=== PATIENT | male | born 1950 | race Caucasian/White ===

== ENCOUNTER → 2018-04-18 | Outpatient (CLI) | payer OTHER ==
[~2018-04-18] MED LIST: AMLO5CAP2 PO; CYAN100020 PO; FLM4 PO; GLC/500 PO; IBUP-1449 PO; MULT-188 PO; PRAV20TA PO
--- NOTE | 2018-04-18 09:04 | DIAGNOSTIC IMAGING REPORT ---
CHEST 2 VIEWS ROUTINE CLINICAL HISTORY: PAT preoperative evaluation COMPARISON STUDY: No previous studies for comparison. FINDINGS: The bones soft tissues and hemidiaphragms are normal. The cardiomediastinal silhouette is normal. The lungs are clear. The pulmonary vasculature is normal. IMPRESSION: Negative chest. The above report was generated using voice recognition software. It may contain grammatical, syntax or spelling errors. Electronically signed by: Jerald Dougherty M.D. 04/18/2018 8:54 AM Dictated Date/Time: 04/18/2018 8:54 AM
== END | disposition home or self-care (01) ==
LOC: C.CPL 08:05
PROVIDERS: ATTEND Urology
DX: N13.5 Crossing vessel and stricture of ureter without hydronephrosis (principal); N21.0 Calculus in bladder; Z01.811 Encounter for preprocedural respiratory examination; Z01.810 Encounter for preprocedural cardiovascular examination; Z01.812 Encounter for preprocedural laboratory examination

== ENCOUNTER 2018-05-02 05:21 | Day surgery (SDC) | payer OTHER ==
[2018-04-16 15:20] VITALS: BMI 32.0
--- NOTE | 2018-04-18 08:27 | PAT Medication Instructions ---
Service Date Apr 18, 2018. Current Home Medication List Amlodipine/Benazepril (Lotrel 5MG/20MG), 1 CAP PO QAM Cyanocobalamin (Vitamin B12), 1 TAB PO QAM Ibuprofen Tab (Motrin), 1 TAB PO TID PRN for Pain Metformin Hcl (Glucophage), 500 MG PO QPM Multiple Vitamins W/ Minerals (Ocuvite), 2 TAB PO QAM Pravastatin (Pravachol ), 20 MG PO QPM Tamsulosin HCl (Tamsulosin HCl), 1 CAP PO HS Medication Instructions For Your Scheduled Surgery - Hold the following medications 10 days prior to surgery per surgeon's instructions: Ibuprofen Tab (Motrin), 1 TAB PO TID PRN for Pain - Hold the following medications the morning of surgery: Amlodipine/Benazepril (Lotrel 5MG/20MG), 1 CAP PO QAM Cyanocobalamin (Vitamin B12), 1 TAB PO QAM Multiple Vitamins W/ Minerals (Ocuvite), 2 TAB PO QAM - Take the following medications as scheduled the night before surgery--THEN NOTHING TO EAT OR DRINK AFTER MIDNIGHT: Metformin Hcl (Glucophage), 500 MG PO QPM Pravastatin (Pravachol ), 20 MG PO QPM Tamsulosin HCl (Tamsulosin HCl), 1 CAP PO HS If you have any questions please call us at [phone] or [phone] or [phone]
[2018-04-18 08:32] VITALS: BMI 32.0
[~2018-05-02] VITALS: Ht 175.3 cm; Wt 100.2 kg
[2018-05-02 05:50] VITALS: BP 164/93; PULSE 79; TEMP 36.4; O2SAT 98; Ht 175.3 cm; Wt 100.2 kg
[2018-05-02] MEDS ORDERED: LACTATED RINGER'S 1000ML 1,000 ML IV SCH (06:00)
[2018-05-02] MEDS ORDERED: CIPROFLOXACIN / D5W 400 MG IV SCH (06:00)
--- NOTE | 2018-05-02 06:56 | History & Physical Bridge Note ---
H&P Re-Evaluation Bridge Note: I have examined the patient, reviewed the History & Physical and in the interval since the performance of the History & Physical I have noted the following changes of clinical significance: No changes noted
[2018-05-02] MEDS ORDERED: LIDOCAINE HCL 2% 2 ML VIAL (20MG/ML) ONE (07:08)
[2018-05-02] MEDS ORDERED: DEXAMETHASONE SOD INJ 4 MG/ML VIAL ONE (07:08)
[2018-05-02] MEDS ORDERED: PROPOFOL IV EMULSION 10 MG/ML 20 ML VIAL ONE (07:08)
[2018-05-02] MEDS ORDERED: ONDANSETRON INJ 2 MG/ML 2 ML VIAL ONE (07:08)
[2018-05-02] MEDS ORDERED: MIDAZOLAM HCL 1 MG/ML 2ML VIAL ONE (07:08)
[2018-05-02] MEDS ORDERED: FENTANYL CITRATE INJ 50 MCG/1 ML 2 ML VIAL ONE (07:09)
[2018-05-02] MEDS ORDERED: PHEN-775 PO (07:13)
[2018-05-02] MEDS ORDERED: CIPR-255 PO (07:13)
[2018-05-02] MEDS ORDERED: HYDR-3419 PO (07:13)
--- NOTE | 2018-05-02 07:14 | Discharge Instructions ---
Discharge Instructions Date of Service May 02, 2018. Admission Reason for Admission: Bladder Stone, Stricture Discharge Discharge Diagnosis / Problem: Bladder stone and stricture s/p OIU and cystolithopaxy Discharge Goals Goal(s): Decrease discomfort, Improve function, Improve disease control, Therapeutic intervention Activity Recommendations Activity Limitations: as noted below Lifting Limitations: no more than 25 pounds, gradually increase as tolerated Exercise/Sports Limitations: rest today, gradually increase as tolerated May Resume Sexual Activity: after follow-up appointment Shower/Bathe: tomorrow (no tub bath with elliott in place) . Instructions / Follow-Up Instructions / Follow-Up As scheduled in office for elliott removal and follow-up appointments Current Hospital Diet Patient's current hospital diet: Discharge Diet Recommended Diet: Regular Diet (good fluid intake) Procedures Procedures Performed: OIU, cystolithopaxy, meatal dilation, fulguration of prostatic bleeders Pending Studies Studies pending at discharge: yes List of pending studies: Stone analysis Medical Emergencies . Who to Call and When: Medical Emergencies: If at any time you feel your situation is an emergency, please call 911 immediately. . Non-Emergent Contact Non-Emergency issues call your: Urologist Call Non-Emergent contact if: you have a fever, temperature is above 101, your pain is not controlled, your pain is worsening, your pain is unusual for you, your pain is concerning you, you have any medication questions . . "Provider Documentation" section prepared by Shahzad Meek. . [place] Drug Monitoring Program Search Results: patient reviewed within database, no issues identified
[2018-05-02] MEDS ORDERED: BELLADONNA/OPIUM SUPP 60 MG SUPP PR ONE (07:27)
[2018-05-02] MEDS ORDERED: PHENYLEPHRINE 100MCG/ML 5ML SYR ONE (07:36)
[2018-05-02] MEDS ORDERED: EpHEDrine SULFATE 50MG/5ML SYR ONE (07:36)
--- NOTE | 2018-05-02 08:00 | [facility] Operative Report ---
Operative Report Operative Date May 02, 2018. Pre-Operative Diagnosis Bladder Calculus Benign prostatic hyperplasia malignant neoplasm or prostate urethral stricture Post-Operative Diagnosis Bladder Calculus Benign prostatic hyperplasia malignant neoplasm or prostate urethral stricture Procedure(s) Performed Cystoscopy, Meatal Dilation Optical Internal Urethrotomy, Cystolithopaxy, Fulguration of prostatic bleeders Surgeon Dr. Meek [employer] Surgeon(s) none Estimated Blood Loss 5 ml Findings Open urethra after completion of case, no evidence of residual stone. Specimens a. bladder stone for chemical analysis Drains 20 [place] silicone Scott with 15 cc of sterile water in the balloon Anesthesia Type General Complication(s) none Disposition no Recovery Room / PACU Indications 67-year-old male found to have a significant stricture disease on office cystoscopy and bladder stone on CT scan who is here today for surgical management. Intravenous ciprofloxacin provided for antibiotic coverage. Please see H&P for further details. SCDs used for DVT prophylaxis. Description of Procedure Patient was properly identified and brought into the operative suite after identification for proper consent of the chart. General anesthesia with laryngeal mask was initiated and patient was prepped and draped in the standard fashion for this procedure. Full timeout procedure was followed. Attempts at passing a urethrotome met with resistance at the level of the meatus which was then dilated to 24 Trin[place]adian caliber using male urethral sounds. After this was complete the urethrotome was able to be passed to the level of the bulbar urethra where a dense stricture was again appreciated. Using a half-james blade this was incised at the 12 o'clock position allowing for passage into the bladder. An inflamed and blanched prostate consistent with previous radiation effect was noted. Stone material was noted to be adherent to the inflammatory tissue within the prostatic fossa. Urethrotome scope was removed and exchanged for a 22 Trin[place] cystoscope. Bladder was surveyed in its entirety demonstrating fragments of mobile stone with no intravesical tumors, papillary lesions or masses. 270 m fiber was used to fragment the stone into smaller pieces which were then able to be flushed free of the bladder grasped as necessary. These were sent for chemical analysis. Bladder was again surveyed and found to be free of any residual stones or other significant abnormality see for inflammation around the bladder neck. Some bleeding vessels at the level of the prostate were fulgurated using Bugbee cautery for additional hemostasis. After this was complete exit cystoscopy was performed demonstrating good aperture to the urethra at the level of the incision. Bladder was partially distended and cystoscope was removed. 20 [place] silicone Scott was placed over a catheter guide with return of clear urine. 15 cc of sterile water were placed within the balloon catheter was placed to gravity drainage. Belladonna and opium suppository was provided for additional postoperative analgesia and anesthesia was reversed. Patient was transferred to the recovery room in stable condition. Follow-up instructions: Patient will be discharged home with a prescription for Percocet, Pyridium and ciprofloxacin. Outpatient appointment for trial of void is confirmed. Patient is instructed to contact our service should he note any fevers, chills, nausea, vomiting or other difficulties in the postoperative period. I attest to the content of the Intraoperative Record and any orders documented therein. Any exceptions are noted below.
[2018-05-02] MEDS ORDERED: PHENAZOPYRIDINE HCL 200 MG TAB PO PRN (08:15)
[2018-05-02] MEDS ORDERED: HYDROCODONE/ACETAMIN 5/325MG TAB PO PRN (08:15)
[2018-05-02] MEDS ORDERED: PROMETHAZINE HCL INJ 12.5 MG in SODIUM CHLORIDE 0.9% 50ML 50 ML IV PRN (08:30)
[2018-05-02] MEDS ORDERED: ATROPINE SULFATE 0.1 MG/ML 5ML SYR IV PRN (08:30)
[2018-05-02] MEDS ORDERED: HYDROmorphone INJ 1 MG/ML SYR IV PRN (08:30)
[2018-05-02] MEDS ORDERED: PHENYLEPHRINE 100MCG/ML 5ML SYR IV PRN (08:30)
[2018-05-02] MEDS ORDERED: ONDANSETRON INJ 2 MG/ML 2 ML VIAL IV PRN (08:30)
[2018-05-02] MEDS ORDERED: FENTANYL CITRATE INJ 50 MCG/1 ML 2 ML VIAL IV PRN (08:30)
[2018-05-02] MEDS ORDERED: EpHEDrine SULFATE INJ 50 MG/ML AMP IV PRN (08:30)
--- NOTE | 2018-05-02 08:42 | Anesthesiology Progress Note ---
Anesthesia Post Op Note Date & Time May 02, 2018 at 08:42 Vital Signs Pain Intensity: 0 Vital Signs Past 12 Hours Date Time Temp Pulse Resp B/P (MAP) Pulse Ox O2 Delivery O2 Flow Rate FiO2 05/02/18 08:32 80 10 94 05/02/18 08:32 80 10 05/02/18 08:31 122/73 05/02/18 08:29 36.9 81 16 122/73 (83) 94 Room Air 05/02/18 08:27 80 13 05/02/18 08:27 79 13 94 05/02/18 08:26 80 12 05/02/18 08:26 79 12 121/69 94 05/02/18 08:21 84 14 05/02/18 08:21 83 14 119/71 97 05/02/18 08:16 89 14 98 05/02/18 08:16 83 14 05/02/18 08:15 96 22 107/70 98 05/02/18 08:15 80 22 05/02/18 08:10 76 16 05/02/18 08:10 76 16 106/64 97 05/02/18 08:06 97/60 05/02/18 08:05 74 17 98 05/02/18 08:05 74 17 05/02/18 08:05 37.1 74 14 97/60 (67) 98 Oxymask 10 05/02/18 05:50 36.4 79 18 164/93 (116) 98 Room Air Notes Mental Status: alert / awake / arousable, participated in evaluation Pt Amnestic to Procedure: Yes Nausea / Vomiting: adequately controlled Pain: adequately controlled Airway Patency, RR, SpO2: stable & adequate BP & HR: stable & adequate Hydration State: stable & adequate Anesthetic Complications: no major complications apparent
[2018-05-02 08:55] VITALS: BP 132/68; PULSE 76; TEMP 36.6; O2SAT 94
[2018-05-02 09:25] VITALS: BP 128/75; PULSE 71; O2SAT 96
[2018-05-02 09:50] VITALS: BP 144/76; PULSE 70; TEMP 36.7; O2SAT 98
--- NOTE | 2018-05-07 14:37 | EDITING REQUIRED CODING QUERY ---
CODING CLARIFICATION Please clarify the size of the calculus treated by cystolitholapaxy: ( X ) Simple or small (less than 2.5 cm) ( ) Complicated or large (over 2.5 cm) ( ) Other, please clarify: Thank you for your assistance, Olga Lidia Kurtz - Industrial Economics Professor
== END 2018-05-02 09:55 | disposition home or self-care (01) ==
LOC: C.ACU 05:21
PROVIDERS: ATTEND Urology
DX: N21.0 Calculus in bladder (principal); N35.9 Urethral stricture, unspecified; N40.0 Benign prostatic hyperplasia without lower urinary tract symptoms; N52.9 Male erectile dysfunction, unspecified; C61 Malignant neoplasm of prostate; I10 Essential (primary) hypertension; E11.9 Type 2 diabetes mellitus without complications; E78.5 Hyperlipidemia, unspecified; E66.9 Obesity, unspecified; Z68.32 Body mass index [BMI] 32.0-32.9, adult; Z88.5 Allergy status to narcotic agent